=== PATIENT | female | born 1935 | race Caucasian/White ===

== ENCOUNTER 2017-02-20 06:36 | Inpatient (IN) | payer OTHER ==
[2017-01-08 10:39] VITALS: BMI 34.0
[2017-01-08 10:59] VITALS: BMI 34.0
--- NOTE | 2017-01-08 11:23 | PAT Medication Instructions ---
Service Date Jan 08, 2017. Current Home Medication List Albuterol Hfa (Ventolin Hfa), 2 PUFFS INH Q6H PRN for PRN Bupropion (Wellbutrin Sr), 150 MG PO BID Cholecalciferol (Vitamin D3), 1 TAB PO QAM Citalopram Hydrobromide (Celexa), 40 MG PO QAM Cyanocobalamin (Vitamin B12), 1,000 MCG PO QAM Diclofenac Sodium (Topical) (Voltaren 1% Top Gel), 1 DOSE TOP PRN Dicyclomine Hcl (Bentyl), 10 MG PO BID Insulin Detemir (Levemir), 100 UNITS INJ QPM Levocetirizine Dihydrochloride (Levocetirizine Dihydrochl), 1 TAB PO QAM Levothyroxine Sodium (Levothyroxine Sodium), 1 TAB PO QAM Metformin Hcl (Glucophage), 500 MG PO BID Multivitamin (Multivitamin), 1 TAB PO QAM Oxycodone/Acetaminophen 7.5MG/325MG (Percocet 7.5MG/325MG), 1 TAB PO Q4H PRN for Pain Pantoprazole (Protonix), 40 MG PO QAM Simvastatin (Zocor), 40 MG PO QPM Trazodone Hcl (Trazodone), 100 MG PO HS PRN for RN [Allergy Tab], 1 TAB PO PRN [Humalog] [Insulin Humalog], 16 UNITS INJ BID Medication Instructions For Your Scheduled Surgery - Hold the following medications 48 hours prior to surgery: Metformin Hcl (Glucophage), 500 MG PO BID - Hold the following medications 24 hours prior to surgery: Diclofenac Sodium (Topical) (Voltaren 1% Top Gel), 1 DOSE TOP PRN - Hold the following medications the morning of surgery: Cholecalciferol (Vitamin D3), 1 TAB PO QAM Cyanocobalamin (Vitamin B12), 1,000 MCG PO QAM Multivitamin (Multivitamin), 1 TAB PO QAM Levocetirizine Dihydrochloride (Levocetirizine Dihydrochl), 1 TAB PO QAM Dicyclomine Hcl (Bentyl), 10 MG PO BID [Allergy Tab], 1 TAB PO PRN [Insulin Humalog], 16 UNITS INJ BID - Take the following medications the morning of surgery with a sip of water: Albuterol Hfa (Ventolin Hfa), 2 PUFFS INH Q6H PRN for PRN (BRING WITH YOU DAY OF SURGERY) Bupropion (Wellbutrin Sr), 150 MG PO BID Citalopram Hydrobromide (Celexa), 40 MG PO QAM Levothyroxine Sodium (Levothyroxine Sodium), 1 TAB PO QAM Oxycodone/Acetaminophen 7.5MG/325MG (Percocet 7.5MG/325MG), 1 TAB PO Q4H PRN ( if needed up to 4 hours prior to surgery) Pantoprazole (Protonix), 40 MG PO QAM - Take the following medications as scheduled the night before surgery: Bupropion (Wellbutrin Sr), 150 MG PO BID Trazodone Hcl (Trazodone), 100 MG PO HS PRN Insulin Detemir (Levemir), 100 UNITS INJ QPM Simvastatin (Zocor), 40 MG PO QPM [Insulin Humalog], 16 UNITS INJ BID Dicyclomine Hcl (Bentyl), 10 MG PO BID Oxycodone/Acetaminophen 7.5MG/325MG (Percocet 7.5MG/325MG), 1 TAB PO Q4H PRN If you have any questions please call us at [phone] or [phone] or [phone]
[2017-01-08 12:20] LABS: BASO % 0.4 %; BASO ABS # 0.04 K/uL (0-0.2); COMPLETE YES; EOS % 2.3 %; HEMATOCRIT 40.8 % (37-47); IG% 0.3 %; LYMPH % 21.4 %; MEAN CELL VOLUME 94.7 fL (80-100); MEAN CORPUSCULAR HEMOGLOBIN 29.9 pg (25-34); MEAN CORPUSCULAR HGB CONC 31.6 g/dl (32-36); MEAN PLATELET VOLUME 10.3 fL (7.4-10.4); MONO % 8.1 %; NEUT % 67.5 %; PLATELET COUNT 213 K/uL (130-400); RED BLOOD COUNT 4.31 M/uL (4.2-5.4); WHITE BLOOD COUNT 9.83 K/uL (4.8-10.8)
[2017-01-08 12:24] LABS: URINE APPEARANCE CLOUDY (CLEAR); URINE BILIRUBIN NEG (NEG); URINE COLOR YELLOW; URINE EPITHELIAL CELL AUTO >30 /lpf (0-5); URINE NITRITE NEG (NEG); URINE PH 5.5 (4.5-7.5); URINE SPECIFIC GRAVITY 1.013 (1.000-1.030); UROBILINOGEN NEG (NEG)
--- NOTE | 2017-01-08 12:28 | DIAGNOSTIC IMAGING REPORT ---
CHEST PREADMISSION(PA/LAT) CLINICAL HISTORY: 81 years-old Female presenting with PAT. TECHNIQUE: PA and lateral views of the chest were obtained. COMPARISON: None. FINDINGS: Atherosclerosis of aortic arch. Cardiac silhouette normal in size. Prominent left nipple shadow projects over the lingula. Lungs and pleural spaces clear. Degenerative changes of the spine with slightly exaggerated thoracic kyphosis. Upper abdomen normal. IMPRESSION: 1. No acute cardiopulmonary disease. Electronically signed by: Dustin Cantu M.D. 01/08/2017 12:26 PM Dictated Date/Time: 01/08/2017 12:25 PM
[2017-01-08 12:32] LABS: MANUAL MICROSCOPIC REQUIRED? NO; REVIEW REQ? NO
[2017-01-08 12:36] LABS: BUN/CREATININE RATIO 16.4 (10-20); CALCIUM 8.8 mg/dl (8.5-10.1); CREATININE 0.89 mg/dl (0.60-1.20); POTASSIUM 3.9 mmol/L (3.5-5.1)
[2017-01-08 12:45] LABS: ESTIMATED AVERAGE GLUCOSE 169 mg/dl; HA1C FLAG Normal (Normal)
--- NOTE | 2017-01-16 07:15 | HISTORY & PHYSICAL EXAMINATION ---
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 She presents for right total knee arthroplasty. She has failed attempts at conservative management including physical therapy, anti-inflammatories, relative rest, activity modification and presents for right total knee arthroplasty. FAMILY HISTORY: Otherwise unremarkable and noncontributory. SOCIAL HISTORY: The patient denies history of smoking, alcohol use, recreational drug use. PAST SURGICAL HISTORY: Significant for breast reduction, tonsillectomy, hysterectomy. ALLERGIES: INCLUDE SEASONAL ALLERGIES. MEDICATIONS: Include insulin, metformin 500 mg p.o. daily, and a cholesterol medication. PAST MEDICAL HISTORY: Otherwise unremarkable. See history of present illness for pertinent positives. PHYSICAL EXAMINATION: GENERAL: Reveals a very pleasant 81-year-old white female, alert and oriented x3, in no acute distress. HEENT: Atraumatic, normocephalic. HEART: Regular at 78 beats per minute. No murmurs are noted. LUNGS: Clear without rales, rhonchi, or wheezes noted. ABDOMEN: Soft, nontender, nondistended. Bowel sounds are present in all 4 quadrants. RECTAL: No rectal examination was performed. MUSCULOSKELETAL: Consistent with that of severe end-stage DJD about the right knee. PLAN: Right total knee arthroplasty, postoperative pain management, DVT prophylaxis, antibiotics as necessary.
--- NOTE | 2017-02-19 10:04 | HISTORY & PHYSICAL EXAMINATION ---
DATE OF ADMISSION: 02/20/2017 HISTORY OF PRESENT ILLNESS: The patient presents as a very pleasant 81-year-old white female, being seen and evaluated with complaints of ongoing pain with severe endstage DJD and varus alignment of her right knee. She presents for right total knee arthroplasty. She has failed attempts at conservative management including physical therapy, anti-inflammatories, relative rest, activity modification. FAMILY HISTORY: Otherwise unremarkable and noncontributory. SOCIAL HISTORY: The patient denies history of smoking, alcohol use or recreational drug use. PAST SURGICAL HISTORY: Significant for breast reduction surgery, tonsillectomy, hysterectomy. ALLERGIES: INCLUDE SEASONAL ALLERGIES. MEDICATIONS: Include metformin 500 mg p.o. b.i.d., cholesterol medication, insulin. REVIEW OF SYSTEMS: Otherwise unremarkable. See history of present illness for pertinent positives. PHYSICAL EXAMINATION: GENERAL: This is a very pleasant 81-year-old white female, alert and oriented x3, no acute distress. HEENT: Otherwise atraumatic, normocephalic. HEART: Regular at 74 beats per minute. No murmurs are noted. LUNGS: Clear without rales, rhonchi or wheezes noted. ABDOMEN: Soft, nontender, nondistended. Bowel sounds are present in all 4 quadrants. RECTAL: No rectal examination was performed. MUSCULOSKELETAL: Consistent with that of severe end-stage DJD, valgus alignment, [id number] changes, subchondral sclerosis, osteophyte formation. The patient presents for total knee arthroplasty, postoperative pain management, DVT prophylaxis, antibiotics as noted above.
[2017-02-20] VITALS (8 sets, daily range): BP systolic 122–153; BP diastolic 66–79; PULSE 68–84; TEMP 36.4–37; O2SAT 90–97; Ht 152.4 cm; Wt 78.6 kg
[~2017-02-20] VITALS: Ht 152.4 cm; Wt 78.6 kg
[~2017-02-20 06:36] MED LIST: ACETAMINOPHEN 500 MG TAB PO SCH; ALLERGY TAB PO; BUPIVACAINE 0.25% 30 ML VIAL ONE; BUPIVACAINE 0.5 % 5 MG/1 ML PF 10ML VIAL ONE; BUPR-79 PO; CEFAZOLIN 1000MG/55 ML D5W 55 ML IV SCH; CHOL1000 PO; CITA40TA12 PO; CYAN100020 PO; CeleBREX 200 MG CAP PO SCH; DEXAMETHASONE 4 MG TAB PO SCH; DICL1GEL12 TOP; DICY10CA55 PO; FAMOTIDINE 20 MG TAB PO SCH; GABAPENTIN 300 MG CAP PO SCH; GLC/500 PO; INSULIN HUMALOG INJ; LACTATED RINGER'S 1000ML 1,000 ML IV SCH; LACTATED RINGER'S 1000ML 500 ML IV ONE; LACTATED RINGER'S 1000ML 500 ML IV SCH; LACTATED RINGER'S 1000ML IV SCH; LEVO-14 PO; LEVO75TA5 PO; LVMI INJ; METOCLOPRAMIDE HCL 10 MG TAB PO SCH; MULT-506 PO; OXYC7.5T65 PO; PANT40TA PO; ROPIVACAINE 5MG/ML 30 ML 150 MG, BUPIVACAINE/EPINEPHR 0.5% MPF 30 ML, KETOROLAC TROMETH... INFIL SCH; SIMV40TA2 PO; TRANEXAMIC ACID INJ 1,000 MG in SODIUM CHLORIDE 0.9% 100ML 100 ML IV SCH; TRAZ100T29 PO; VNTHFA/IN INH
--- NOTE | 2017-02-20 06:58 | History & Physical Bridge Note ---
H&P Re-Evaluation Bridge Note: I have examined the patient, reviewed the History & Physical and in the interval since the performance of the History & Physical I have noted the following changes of clinical significance: No changes noted
[2017-02-20] MEDS ORDERED: DEXTROSE 50% 50 ML SYR ONE (07:26)
[2017-02-20] MEDS ORDERED: LIDOCAINE HCL 2% 2 ML VIAL (20MG/ML) ONE (07:50)
[2017-02-20] MEDS ORDERED: PROPOFOL IV EMULSION 10 MG/ML 20 ML VIAL IV ONE (07:50)
[2017-02-20] MEDS ORDERED: MIDAZOLAM HCL 1 MG/ML 2ML VIAL ONE (07:51)
[2017-02-20] MEDS ORDERED: FENTANYL CITRATE INJ 50 MCG/1 ML 2 ML VIAL ONE (07:51)
[2017-02-20] MEDS ORDERED: ONDANSETRON INJ 2 MG/ML 2 ML VIAL ONE (07:56)
[2017-02-20 08:43] LABS: BUN/CREATININE RATIO 16.3 (10-20); CALCIUM 8.8 mg/dl (8.5-10.1); CREATININE 1.1 mg/dl (0.60-1.20); POTASSIUM 3.6 mmol/L (3.5-5.1)
[2017-02-20] MEDS ORDERED: BACITRACIN 50000 UNIT VIAL ONE (09:01)
[2017-02-20] MEDS ORDERED: POVIDONE-IODINE OP SOLN 30 ML BTL ONE (09:01)
[2017-02-20] MEDS ORDERED: ORTHO JOINT ANESTHETIC ONE (09:01)
[2017-02-20] MEDS: TRANEXAMIC ACID INJ 1,000 MG in SODIUM CHLORIDE 0.9% 100ML 100 ML IV SCH ×2 (09:08→12:33)
[2017-02-20] MEDS ORDERED: ONDANSETRON INJ 2 MG/ML 2 ML VIAL IV PRN ×2 (09:45→11:15)
[2017-02-20] MEDS ORDERED: ATROPINE SULFATE 0.1 MG/ML 5ML SYR IV PRN (09:45)
[2017-02-20] MEDS ORDERED: EpHEDrine SULFATE INJ 50 MG/ML AMP IV PRN (09:45)
[2017-02-20] MEDS ORDERED: HYDROmorphone INJ 2 MG/ML SYR/VIAL IV PRN (09:45)
[2017-02-20] MEDS ORDERED: PHENYLEPHRINE 100MCG/ML 5ML SYR IV PRN (09:45)
[2017-02-20] MEDS ORDERED: KETOROLAC TROMETHAMINE 30 MG/ML VIAL IV. PRN (09:45)
[2017-02-20] MEDS ORDERED: EpHEDrine SULFATE 50MG/5ML SYR ONE (10:16)
--- NOTE | 2017-02-20 10:27 | [facility] Operative Report ---
Operative Report Operative Date Feb 20, 2017. Pre-Operative Diagnosis Right Knee End-Stage Degenerative Joint Disease Post-Operative Diagnosis Right Knee End-Stage Degenerative Joint Disease Procedure(s) Performed Right Total Knee Arthroplasty utilizing [employer] journey 2 nonlocked total knee arthroplasty size 2 femur to tibia Poly-29 oval patella Surgeon Ernesto Internet Marketer Surgeon(s) Jey Hart PA-C Estimated Blood Loss 5CC Findings Patient presents with severe end-stage Tri-Chlor milligrams joint disease varus alignment subchondral cystic formation osteophyte formation Nourse wants to conservative therapy Specimens A: Right Knee Bone and Tissue Complication(s) None Disposition Recovery Room / PACU Indications Patient presents with severe end-stage Tri-Chlor milligrams Joint disease after failing attempts at conservative management of for total knee arthroplasty risk opticians of been discussed entirety. Description of Procedure After proper prepping and draping of the Right lower extremity anterior midline incision was made over the region of the extensor extensor mechanism after meticulous hemostasis was obtained and maintained in subcutaneous tissues a medial parapatellar incision was made The patella was subluxed lateralward the medial lateral gutter were cleaned from any hypertrophic synovitis and scar tissue of the distal femoral block was placed and the distal femoral osteotomy cut was made subsequently the chamfers anterior and posterior osteotomy cuts were made utilizing the 4-in-1 block the tibia was subsequently subluxed anteriorward medial and ateral meniscal remnants were excised in their entirety remnants of the anterior and posterior cruciate ligaments were excised in their entirety excellent exposure of the proximal tibia was obtained the tibial osteotomy guide was placed on the proximal tibial osteotomy cut was made once again the knee was irrigated with copious amounts of sterile saline solution the patella was subsequently everted lateralward thickened scar tissue around the patella was removed the patella was subsequently cut utilizing a freehand technique and was drilled prepared for final preparation and placement of patella socially flexion-extension gaps were checked and the equal and symmetric trials were placed to the appropriate femoral and tibial trials with poly-spacer being placed for equal flexion and extension gaps and full range of motion including extension to 0 and flexion to 140 the trial components after having been taken to recovery range of motion was subsequently removed meticulous hemostasis was obtained and maintained subsequently a knee block injection of joint cocktail including ropivacaine 0.5% 150 mg. Bupivacaine 0.5 % epinephrine 1-200,030 mL's toradol 30 mg dexamethasone 4 mg ketamine 10 mg clonidine 100 micrograms normal saline solution 30 mg was infiltrated into the soft tissues of the posterior knee medial lateral gutters and periosteal synovium special attention was paid to protect neurovascular structures at all times subsequently trial components having been removed the knee was irrigated with sterile saline solution. debris was removed the proximal tibia was subsequently prepared and was made ready for the placement of the tibial component tibial component was also cemented and tamped into position the femoral component was subsequently placed and cemented in the position the patellar component was subsequently cemented in position because hemostasis once again obtained and maintained wound having been thoroughly irrigated with debridement and debridement lavage was performed as well as a medial parapatellar incision closed with #1 Vicryl in interrupted fashion subcutaneous was closed with #2 Vicryl skin was closed with skin clips. PA-C was necessary for prepping and drapping as well as wound closure of deep fascia Sub cutaneous tissue and skin and was necessary for the case. A sterile compressive dressing was placed patient was taken to recovery in stable condition of report dictated by Ernesto I attest to the content of the Intraoperative Record and any orders documented therein. Any exceptions are noted below. I attest to the content of the Intraoperative Record and any orders documented therein. Any exceptions are noted below.
[2017-02-20] MEDS ORDERED: SOD PHOSPHATE/SOD BIPHOSPHATE ENEMA 132 ML BTL PR PRN (11:15)
[2017-02-20] MEDS ORDERED: [UNRECOGNIZED DRUG - REMARK] PO SCH (11:15)
[2017-02-20] MEDS ORDERED: BISACODYL 10 MG SUPP PR PRN (11:15)
[2017-02-20] MEDS ORDERED: ALUMINUM/MAGNESIUM/SIMETH (MAALOX MAX) 30 ML UDC PO PRN (11:15)
[2017-02-20] MEDS ORDERED: TRAZODONE HCL 100 MG TAB PO PRN (11:15)
[2017-02-20] MEDS ORDERED: MAGNESIUM HYDROXIDE SUSP 30 ML UDC PO PRN (11:15)
[2017-02-20] MEDS ORDERED: MoRPHine SULFATE 2 MG/ML CARP IV PRN (11:15)
[2017-02-20] MEDS ORDERED: ALBUTEROL HFA 8 GM INHALER INH PRN (11:15)
--- NOTE | 2017-02-20 11:53 | Anesthesiology Progress Note ---
Anesthesia Post Op Note Date & Time Feb 20, 2017 at 11:53 Vital Signs Pain Intensity: 0 Vital Signs Past 12 Hours Date Time Temp Pulse Resp B/P (MAP) Pulse Ox O2 Delivery O2 Flow Rate FiO2 02/20/17 11:50 68 16 129/59 97 Nasal Cannula 2 02/20/17 11:40 37.1 72 16 136/68 96 Nasal Cannula 2 02/20/17 11:30 72 16 137/59 97 Nasal Cannula 2 02/20/17 11:20 68 16 137/75 97 Nasal Cannula 2 02/20/17 11:10 71 16 135/69 100 Oxymask 10 02/20/17 11:02 36.4 66 16 136/66 100 Oxymask 10 02/20/17 07:40 36.4 68 20 153/66 95 Room Air Notes Mental Status: alert / awake / arousable, participated in evaluation Pt Amnestic to Procedure: Yes Nausea / Vomiting: adequately controlled Pain: adequately controlled Airway Patency, RR, SpO2: stable & adequate BP & HR: stable & adequate Hydration State: stable & adequate Anesthetic Complications: no major complications apparent
--- NOTE | 2017-02-20 12:00 | DIAGNOSTIC IMAGING REPORT ---
TWO VIEWS RIGHT KNEE CLINICAL HISTORY: Postoperative examination. FINDINGS: AP and crosstable lateral portable views of the right knee are obtained. A right knee arthroplasty is in near anatomic alignment. There has been undersurface remodeling of the patella. No acute fracture is seen. There are expected postoperative changes around the knee including skin clips, a surgical drain, soft tissue edema, and subcutaneous gas. IMPRESSION: Expected postoperative changes status post right knee arthroplasty. No acute fracture is seen. Electronically signed by: Arslan Spears M.D. 02/20/2017 11:58 AM Dictated Date/Time: 02/20/2017 11:58 AM
[2017-02-20] MEDS ORDERED: MoRPHine SULFATE 10 MG/ML CARP/VIAL IV PRN (13:00)
[2017-02-20] MEDS ORDERED: MoRPHine SULFATE 4 MG/ML 1 ML CARP\\VIAL IV PRN (13:00)
--- NOTE | 2017-02-20 13:43 | Medical Consult ---
Consultation Date of Consultation: Feb 20, 2017. Attending Physician: Ez Orozco D.O. Reason for Consultation: Medical management History of Present Illness Patient is an 81 y/o female, with PMHx of T2DM, dyslipidemia, hypothyroidism, GERD, and DJD s/p R TKA by Dr. Orozco on 02/20. Patient currently sitting in bed w/ family present. Ate lunch without any nausea or vomiting. R knee pain is starting to increase, but currently manageable. No flatus/BM postop. Unsure of discharge plans at this time. Patient denies any fever, chills, sweats, lightheadedness, dizziness, vision changes, CP, palpitations, edema, SOB, wheezing, cough, abdominal pain, nausea, vomiting, diarrhea, urinary symptoms, melena, numbness/tingling, weakness, anxiety/depression, active bleeding, or new skin discoloration/changes. Past Medical/Surgical History Past Medical History: T2DM Dyslipidemia GERD hypothyroidism DJD PAST SURGICAL HISTORY: R TKA breast reduction tonsillectomy hysterectomy Family History Noncontributory Social History Smoking Status: Never Smoker Alcohol Use: none Marital Status: Housing Status: lives with family Allergies Coded Allergies: NO KNOWN DRUG ALLERGIES (Unverified Allergy, Unknown, NONE, 02/20/17) POLLEN (Unverified Allergy, Unknown, SNEEEZING,CONGESTION, 02/20/17) Home Medications Reported Home Medications Medications Dose Route/Sig Max Daily Dose Days Date Category Dose Instructions Glucophage (Metformin Hcl) 500 Mg Tab 500 Mg PO BID 01/08/17 Reported [Allergy Tab] 1 Tab PO PRN 01/08/17 Reported Multivitamin (Multivitamins) Tab 1 Tab PO QAM 01/08/17 Reported Vitamin D3 (Cholecalciferol) 1,000 Unit Tab 1 Tab PO QAM 90 01/08/17 Reported Vitamin B12 (Cyanocobalamin) 1,000 Mcg Tab 1,000 Mcg PO QAM 01/08/17 Reported Trazodone (Trazodone HCl) 100 Mg Tab 100 Mg PO HS PRN 01/08/17 Reported Ventolin Hfa (Albuterol) 200 Puffs/41776 Mcg Aers 2 Puffs INH Q6H PRN 01/08/17 Reported Zocor (Simvastatin) 40 Mg Tab 40 Mg PO QPM 01/08/17 Reported Protonix (Pantoprazole Sodium) 40 Mg Tab 40 Mg PO QAM 01/08/17 Reported Celexa (Citalopram Hydrobromide) 40 Mg Tab 40 Mg PO QAM 01/08/17 Reported Levothyroxine Sodium 75 Mcg Tab 1 Tab PO QAM 90 01/08/17 Reported Levocetirizine Dihydrochl (Levocetirizine Dihydrochloride) 5 Mg Tab 1 Tab PO QAM 90 01/08/17 Reported Percocet 7.5MG/325MG (Oxycodone/Acetaminophen) Tab 1 Tab PO Q4H PRN 01/08/17 Reported PRN PAIN Bentyl (Dicyclomine Hcl) 10 Mg Cap 10 Mg PO BID 01/08/17 Reported Wellbutrin Sr (Bupropion HCl) 150 Mg Ertab 150 Mg PO BID 01/08/17 Reported Levemir (Insulin Detemir) 100 Units/Ml Inj 100 Units INJ QPM 01/08/17 Reported [Insulin Humalog] 16 Units INJ BID 01/08/17 Reported Current Inpatient Medications Current Inpatient Medications Medications (Trade) Dose Ordered Sig/Raghu Route Start Time Stop Time Status Last Admin Dose Admin Cefazolin Sodium 55 ml @ 100 mls/hr PREOP IV 02/20/17 06:00 02/20/17 18:00 02/20/17 09:27 100 MLS/HR Acetaminophen (Tylenol Tab) 1,000 mg PREOP PO 02/20/17 06:00 02/20/17 18:00 02/20/17 08:17 1,000 MG Celecoxib (CeleBREX CAP) 200 mg PREOP PO 02/20/17 06:00 02/20/17 18:00 02/20/17 08:16 200 MG Dexamethasone (Decadron Tab) 8 mg PREOP PO 02/20/17 06:00 02/20/17 18:00 02/20/17 08:16 8 MG Famotidine (Pepcid Tab) 20 mg PREOP PO 02/20/17 06:00 02/20/17 18:00 02/20/17 08:17 20 MG Gabapentin (Neurontin Cap) 300 mg PREOP PO 02/20/17 06:00 02/20/17 18:00 02/20/17 08:16 300 MG Metoclopramide HCl (Reglan Tab) 10 mg PREOP PO 02/20/17 06:00 02/20/17 18:00 02/20/17 08:17 10 MG Tranexamic Acid 1000 mg/Sodium Chloride 110 ml @ 660 mls/hr TODAY@06,0630 IV 02/20/17 06:00 02/20/17 18:00 02/20/17 09:08 660 MLS/HR Lactated Ringer's 1,000 ml @ 60 mls/hr [id number] IV 02/20/17 06:00 02/20/17 22:39 Lactated Ringer's 1,000 ml @ 15 mls/hr Q24H IV 02/20/17 06:00 02/21/17 05:59 Sodium Chloride 1,000 ml @ 100 mls/hr Q10H IV 02/20/17 12:45 02/21/17 12:44 Cefazolin Sodium 1000 mg/Dextrose 55 ml @ 100 mls/hr Q8H IV 02/20/17 18:00 02/21/17 02:32 Oxycodone HCl (Roxicodone Immediate Rel Tab) 1 TABLET FOR PAIN RATING... Q4H PRN PO 02/20/17 11:15 03/06/17 11:14 Acetaminophen (Tylenol Tab) 1,000 mg Q8 PO 02/20/17 22:00 03/22/17 21:59 Magnesium Hydroxide (Milk Of Magnesia Susp) 30 ml Q6H PRN PO 02/20/17 11:15 03/22/17 11:14 Bisacodyl (Dulcolax Supp) 10 mg DAILY PRN GA 02/20/17 11:15 03/22/17 11:14 Sodium Biphosphate/ Sodium Phosphate (Fleet Enema) 132 ml DAILY PRN GA 02/20/17 11:15 03/22/17 11:14 Senna (Senokot Tab) 17.2 mg HS PO 02/20/17 21:00 03/22/17 20:59 Docusate Sodium (coLACE CAP) 100 mg BID PO 02/20/17 21:00 03/22/17 20:59 Diphenhydramine HCl (Benadryl Cap) 25 mg Q8H PRN PO 02/20/17 11:15 03/22/17 11:14 Al Hydrox/Mg Hydrox/Simethicone (Maalox Max Susp) 15 ml Q4H PRN PO 02/20/17 11:15 03/22/17 11:14 Multivitamins (Multivitamin Tab) 1 tab QAM PO 02/21/17 09:00 03/23/17 08:59 Ondansetron HCl (Zofran Inj) 4 mg Q6H PRN IV 02/20/17 11:15 03/22/17 11:14 Pantoprazole Sodium (Protonix Tab) 40 mg QAM PO 02/21/17 09:00 03/23/17 08:59 Tramadol HCl (Ultram Tab) 1 tablet for pain rating... Q4H PRN PO 02/20/17 11:15 03/22/17 11:14 Aspirin (Ecotrin Tab) 81 mg BID PO 02/20/17 21:00 03/22/17 20:59 Albuterol (Ventolin Hfa Inhaler) 2 puffs Q6H PRN INH 02/20/17 11:15 03/22/17 11:14 Bupropion HCl (Wellbutrin-Sr Tab) 150 mg BID PO 02/20/17 21:00 03/22/17 20:59 Citalopram Hydrobromide (celeXA TAB) 40 mg QAM PO 02/21/17 09:00 03/23/17 08:59 Dicyclomine HCl (Bentyl Cap) 10 mg BID PO 02/20/17 21:00 03/22/17 20:59 Levothyroxine Sodium (Synthroid Tab) 75 mcg DAILYBB PO 02/21/17 06:00 03/23/17 05:59 Simvastatin (Zocor Tab) 40 mg QPM PO 02/20/17 21:00 03/22/17 20:59 Trazodone HCl (Desyrel Tab) 100 mg HS PRN PO 02/20/17 11:15 03/22/17 11:14 Cyanocobalamin (Vitamin B-12 Tab) 1,000 mcg QAM PO 02/21/17 09:00 03/23/17 08:59 Morphine Sulfate (MoRPHine SULFATE INJ) 2 mg Q4HWA PRN IV 02/20/17 11:15 03/06/17 11:14 Morphine Sulfate (MoRPHine SULFATE INJ) 4 mg Q4HWA PRN IV 02/20/17 13:00 03/06/17 12:59 Morphine Sulfate (MoRPHine SULFATE INJ) 6 mg Q4HWA PRN IV 02/20/17 13:00 03/06/17 12:59 Miscellaneous Information (Order Awaiting Action) 1 ea QS N/A 02/20/17 16:00 03/22/17 15:59 Physical Exam Date Time Temp Pulse Resp B/P (MAP) Pulse Ox O2 Delivery O2 Flow Rate FiO2 02/20/17 13:19 37.0 81 18 147/79 (101) 97 Nasal Cannula 3.0 02/20/17 12:42 36.5 71 18 130/74 (92) 96 Nasal Cannula 3.0 02/20/17 12:15 36.5 72 16 122/70 (87) 95 Nasal Cannula 2.0 02/20/17 12:15 Nasal Cannula 2.0 02/20/17 12:15 Nasal Cannula 2.0 02/20/17 12:00 68 16 128/61 97 Nasal Cannula 2 02/20/17 11:50 68 16 129/59 97 Nasal Cannula 2 02/20/17 11:40 37.1 72 16 136/68 96 Nasal Cannula 2 02/20/17 11:30 72 16 137/59 97 Nasal Cannula 2 02/20/17 11:20 68 16 137/75 97 Nasal Cannula 2 02/20/17 11:10 71 16 135/69 100 Oxymask 10 02/20/17 11:02 36.4 66 16 136/66 100 Oxymask 10 02/20/17 07:40 36.4 68 20 153/66 95 Room Air General Appearance: no apparent distress, + pertinent finding (O2 NC) Head: normocephalic, atraumatic Eyes: normal inspection, PERRL ENT: hearing grossly normal Neck: supple Respiratory/Chest: lungs clear, no respiratory distress, no accessory muscle use Cardiovascular: regular rate, rhythm Abdomen/GI: normal bowel sounds, non tender, soft Extremities/Musculoskelatal: no calf tenderness, no pedal edema, + pertinent finding (SIXTO wrap to RLE; SCDs on ) Neurologic/Psych: alert, normal mood/affect, oriented x 3 Skin: normal color, warm/dry, no rash Laboratory Results Last 24 Hours Test 02/20/17 07:13 02/20/17 07:39 02/20/17 07:57 02/20/17 08:50 Bedside Glucose 39 mg/dl 209 mg/dl 99 mg/dl Sodium Level 140 mmol/L Potassium Level 3.6 mmol/L Chloride Level 107 mmol/L Carbon Dioxide Level 27 mmol/L Anion Gap 5.0 mmol/L Blood Urea Nitrogen 18 mg/dl Creatinine 1.10 mg/dl Est Creatinine Clear Calc Drug Dose 35.9 ml/min Estimated GFR () 53.8 Estimated GFR (Non- 46.4 BUN/Creatinine Ratio 16.3 Random Glucose 142 mg/dl Calcium Level 8.8 mg/dl Test 02/20/17 10:03 02/20/17 11:07 Bedside Glucose 113 mg/dl 133 mg/dl Assessment & Plan Patient is an 81 y/o female, with PMHx of T2DM, dyslipidemia, hypothyroidism, GERD, and DJD s/p R TKA by Dr. Orozco on 02/20. s/p R TKA by Dr. Orozco on 02/20: - Pain management, IVF, PT/OT and DVT prophylaxis as per primary team - Bowel regimen ordered - Follow postop CBC and PRP - Encourage incentive spirometer T2DM- HgbA1C 7.5% on 01/08/17: - Hold Metformin 500 mg BID - Continue Levemir 42 U HS - BSG ACHS and sliding insulin scale Dyslipidemia: Continue Zocor 40 mg daily Hypothyroidism: Continue Synthroid 75 mcg daily Anxiety/depression: Continue Wellbutrin 150 BID, Celexa 40 mg daily, Trazodone 100 mg HS PRN GERD: Continue Protonix 40 mg daily DVT prophylaxis: As per surgical team- ASA 81 mg BID Dispo: As per primary team Thank you for this consultation. We will continue to follow. .Attending Addendum: I have physically seen this patient, have directed the physician assistants medical activities, and agree with the H&P as noted above with the following exceptions as noted. Assessment and Plan: Status post right total knee arthroplasty on 02/[address] Orozco-- Seen postoperatively is medically stable. Diabetes mellitus-- hold metformin Continue Levemir 42 units subcutaneous at bedtime. Place on Accu-Cheks before meals and at bedtime with NovoLog coverage per scale. Dyslipidemia-- Continue Zocor 40 mg daily. Hypothyroidism-- Continue Synthroid 75 g by mouth daily. Anxiety with depression-- Continue Wellbutrin 150 mg by mouth twice a day, Celexa 40 mg by mouth daily and trazodone 100 mg by mouth at bedtime when necessary. GERD-- Continue Protonix 40 mg daily.
[2017-02-20] MEDS: OXYCODONE HCL IR 5 MG TAB (IMMEDIATE RELEASE) PO PRN ×2 (14:14→20:43)
[2017-02-20] MEDS: SODIUM CHLORIDE 0.9% 1000ML 1,000 ML IV SCH ×2 (14:15→22:14)
[2017-02-20] MEDS ORDERED: DEXTROSE 50% 50 ML SYR IV PRN (14:15)
[2017-02-20] MEDS ORDERED: GLUCOSE 10 TABS/TUBE PO PRN (14:15)
[2017-02-20] MEDS ORDERED: GLUCOSE 40% GEL 15 GM TUBE PO PRN (14:15)
[2017-02-20] MEDS ORDERED: GLUCAGON FOR INJ 1 MG VIAL SQ PRN (14:15)
[2017-02-20] MEDS: CEFAZOLIN IV 1,000 MG in DEXTROSE 5% 50ML 50 ML IV SCH (17:35)
[2017-02-20] MEDS ORDERED: NURSING VERBAL MED ORDER ONE (18:15)
[2017-02-20] MEDS: INSULIN ASPART 100 UNITS/ML 3 ML PEN SC SCH ×2 (18:38→21:04)
[2017-02-20] MEDS: ASPIRIN 81 MG ECTAB PO SCH (20:45)
[2017-02-20] MEDS: DICYCLOMINE HCL 10 MG CAP PO SCH (20:46)
[2017-02-20] MEDS: DOCUSATE SODIUM 100 MG CAP PO SCH (20:46)
[2017-02-20] MEDS: INSULIN DETEMIR FLEXPEN/FLEX TOUCH 100 UNITS/ML 3ML SC SCH (20:47)
[2017-02-20] MEDS: BuPROPion SR 150 MG TABCR PO SCH (20:51)
[2017-02-20] MEDS: SIMVASTATIN 40 MG TAB PO SCH (20:51)
[2017-02-20] MEDS: SENNA 8.6 MG TAB PO SCH (20:51)
[2017-02-20] MEDS ORDERED: INSULIN DETEMIR FLEXPEN/FLEX TOUCH 100 UNITS/ML 3ML SC SCH (21:00)
[2017-02-20] MEDS: ACETAMINOPHEN 500 MG TAB PO SCH (22:14)
[2017-02-21] VITALS (7 sets, daily range): BP systolic 120–148; BP diastolic 66–83; PULSE 62–78; TEMP 36.5–36.8; O2SAT 91–96
[2017-02-21] MEDS: TRAMADOL HCL 50 MG TAB PO PRN ×2 (00:23→07:41)
[2017-02-21] MEDS: CEFAZOLIN IV 1,000 MG in DEXTROSE 5% 50ML 50 ML IV SCH (02:36)
[2017-02-21] MEDS ORDERED: NURSING VERBAL MED ORDER ONE (04:15)
[2017-02-21] MEDS: INSULIN ASPART 100 UNITS/ML 3 ML PEN SC SCH ×5 (04:21→21:33)
[2017-02-21] MEDS: OXYCODONE HCL IR 5 MG TAB (IMMEDIATE RELEASE) PO PRN ×4 (04:28→21:30)
[2017-02-21] MEDS: LEVOTHYROXINE 75 MCG TAB PO SCH (05:31)
[2017-02-21] MEDS: ACETAMINOPHEN 500 MG TAB PO SCH ×3 (05:31→21:31)
[2017-02-21 06:03] LABS: HEMATOCRIT 30.5 % (37-47); MEAN CELL VOLUME 92.7 fL (80-100); MEAN CORPUSCULAR HEMOGLOBIN 30.4 pg (25-34); MEAN CORPUSCULAR HGB CONC 32.8 g/dl (32-36); MEAN PLATELET VOLUME 9.9 fL (7.4-10.4); PLATELET COUNT 162 K/uL (130-400); RED BLOOD COUNT 3.29 M/uL (4.2-5.4); WHITE BLOOD COUNT 13.12 K/uL (4.8-10.8)
[2017-02-21 06:21] LABS: INR 1.1 (0.9-1.1); PROTHROMBIN TIME (PATIENT) 11.5 SECONDS (9.0-12.0)
[2017-02-21 06:50] LABS: BUN/CREATININE RATIO 18.8 (10-20); CALCIUM 8.3 mg/dl (8.5-10.1); CREATININE 1.1 mg/dl (0.60-1.20); POTASSIUM 4.2 mmol/L (3.5-5.1)
--- NOTE | 2017-02-21 07:44 | Orthopedic Progress Note ---
Orthopedic Progress Note Date of Service Feb 21, 2017. Subjective Post OP Day: 1 (right TKA) Reports: feeling well, nausea / vomiting, pain controlled w PO medications, Denies: complaints, chest pain, SOB, light headedness, calf pain Objective calves soft nontender, N/V intact, capillary refill less than 2 sec., dressing C /D/I, A&O x3, toes mobile, hemovac drainage (100cc/8 hours) Date Time Temp Pulse Resp B/P (MAP) Pulse Ox O2 Delivery O2 Flow Rate FiO2 02/21/17 07:23 36.7 68 19 126/72 (90) 91 Room Air 02/21/17 03:36 36.7 74 17 124/72 (89) 93 Room Air 02/21/17 00:10 Room Air 02/20/17 23:11 36.7 71 17 134/67 (89) 90 Room Air 02/20/17 19:30 36.4 74 16 125/78 (94) 94 Room Air 02/20/17 16:17 36.6 84 18 136/75 (95) 96 2.0 02/20/17 14:28 36.5 79 17 148/78 (101) 97 Nasal Cannula 2.0 02/20/17 13:19 37.0 81 18 147/79 (101) 97 Nasal Cannula 3.0 02/20/17 12:42 36.5 71 18 130/74 (92) 96 Nasal Cannula 3.0 02/20/17 12:15 36.5 72 16 122/70 (87) 95 Nasal Cannula 2.0 02/20/17 12:15 Nasal Cannula 2.0 02/20/17 12:15 Nasal Cannula 2.0 02/20/17 12:00 68 16 128/61 97 Nasal Cannula 2 02/20/17 11:50 68 16 129/59 97 Nasal Cannula 2 02/20/17 11:40 37.1 72 16 136/68 96 Nasal Cannula 2 02/20/17 11:30 72 16 137/59 97 Nasal Cannula 2 02/20/17 11:20 68 16 137/75 97 Nasal Cannula 2 02/20/17 11:10 71 16 135/69 100 Oxymask 10 02/20/17 11:02 36.4 66 16 136/66 100 Oxymask 10 Laboratory Results 24 Hours: Test 02/21/17 05:52 Hematocrit 30.5 % Hemoglobin 10.0 g/dL Prothromb Time International Ratio 1.1 Prothrombin Time 11.5 SECONDS Assessment & Plan Assessment: POD #1 s/p Right TKA -pt/ot -dvt proph with na/scd/asa -plan for d/c home with HHPT when stable -pain control with Tramadol, Tylenol, Oxy Post-op Nausea- doesn't feel like Zofran is helping much, will switch to Phenergan T2DM- on Levemir, hold Metformin, SSI Dyslipidemia: Continue Zocor 40 mg daily Hypothyroidism: Continue Synthroid 75 mcg daily Anxiety/depression: Continue Wellbutrin 150 BID, Celexa 40 mg daily, Trazodone 100 mg HS PRN GERD: Continue Protonix 40 mg daily Discharge Planning Discharge Planning: home with home health DVT Prophylaxis: TEDs, SCDs, ASA Therapy: Physical Therapy
[2017-02-21] MEDS ORDERED: PROMETHAZINE HCL INJ 25 MG in SODIUM CHLORIDE 0.9% 50ML 50 ML IV PRN (07:45)
--- NOTE | 2017-02-21 07:49 | Discharge Instructions ---
Discharge Instructions Date of Service Feb 21, 2017. Admission Reason for Admission: Right Knee Osteoarthritis Discharge Discharge Diagnosis / Problem: Right Total Knee Replacement Discharge Goals Goal(s): Decrease discomfort, Improve function, Increase independence Activity Recommendations Activity Limitations: as noted below Weightbearing Status: Right weightbearing (as tolerated) Instructions / Follow-Up Instructions / Follow-Up ACTIVITY RECOMMENDATIONS: SELF CARE INSTRUCTIONS AFTER TOTAL KNEE REPLACEMENT A. You may need to continue a physical therapy program after discharge from the hospital. There are several options available to you. Your doctor will assist you in selecting the best one for you. 1. An out-patient facility 2 to 3 times a week for therapy or home therapy. 2. Continue working on all exercises taught to you in the hospital. Your goals should be to increase bending of your knee to 90 degrees and beyond and to fully straighten your knee. B. You may progress at your own pace from walking with a walker or crutches to a cane; then to no assistive devices. C. Make walking a part of your daily routine. Be up as much as comfortable with rest periods throughout the day. Rest with leg elevation is very important. Use the ice wrap frequently for the first 3-4 weeks. D. There are no restrictions on activities. You may ride in a car, shop, participate in cloth edge singer and all social activities. E. Wear the long elastic stockings (MALIA hose) 20 hours a day for 2 weeks after surgery. They can be removed several times a day for laundering and for a bath. F. You may shower, no tub baths until cleared by your doctor. SPECIAL CARE INSTRUCTIONS: VERY IMPORTANT TO READ AND REVIEW A. There are a few signs you need to watch for after you are home. Call [facility] if you notice any of the followin. Increased severe knee pain. Some pain is expected especially when you exercise. 2. Increased swelling in your leg or knee; pain or swelling of the calf muscle in either lower leg. 3. Any fluid drainage from the incision. 4. Shortness of breath or chest pain. B. Please call [facility] at if you have any concerns or questions about your operation or recovery. The doctor or his nurse will return your call promptly. C. You must take antibiotics before dental work, bladder, bowel or other surgery. Your doctor will provide you with a permanent care to carry describing this precaution. IMPORTANT: * REMEMBER TO TAKE ASPIRIN, 81 MG, TWICE DAILY FOR 4 WEEKS UNLESS OTHERWISE DIRECTED. THIS IS YOUR BLOOD THINNER. * HIGH RISK PATIENTS MAY BE PRESCRIBED A STRONGER BLOOD THINNER. THIS WILL BE PROVIDED AT DISCHARGE. * CALL IF INCREASED PAIN, REDNESS, DRAINAGE OR FEVER GREATER THAT 101. * WEAR MALIA HOSE 20 HOURS PER DAY FOR 2 WEEKS. * YOU MAY HAVE A LARGE BAND-AID LIKE DRESSING (SILVERON). THIS WILL REMAIN ON YOUR INCISION FOR 7 DAYS, THEN CAN BE REMOVED. IF INCISION IS LEAKING THROUGH DRESSING, CALL THE OFFICE . FOLLOW UP VISIT: If appointment is not already scheduled: Please call [facility] to make a follow-up appointment for 2 weeks after your surgery at . Additional instructions from Dr. Yuriy Sanchez (medical team) - 1. Your abdominal x-rays showed severe constipation. Recommend you take the following to prevent and treat the constipation - * miralax 1 to 2 doses daily (this can be purchased [id number]) * sennakot 2 tablets every morning Know that the pain medications for your knee (oxycodone) will make your constipation much worse. You will need to stay on the constipation medications for quite some time if not indefinitely. 2. You are mildly anemic as a result of your recent surgery. Please take over- the-counter iron tablets twice daily for about 2 months. Ask your pharmacist to point you in the direction of ferrous sulfate 325mg tablets. Know that the iron tends to cause constipation as well and cause the stools to look dark. 3. Please see your family doctor in [place] within 1 week. Yuriy Sanchez MD . Current Hospital Diet Patient's current hospital diet: Diabetes Type 2 Diet Discharge Diet Recommended Diet: Diabetes Type 2 Diet Procedures Procedures Performed: Right Total Knee Arthroplasty utilizing [employer] journey 2 nonlocked total knee arthroplasty size 2 femur to tibia Poly-29 oval patella Pending Studies Studies pending at discharge: no Laboratory Results Hemoglobin A1c Test 01/08/17 11:35 Range/Units Estimated Average Glucose 169 mg/dl Hemoglobin A1c 7.5 H 4.5-5.6 % Medical Emergencies . Who to Call and When: Medical Emergencies: If at any time you feel your situation is an emergency, please call 911 immediately. . Non-Emergent Contact Non-Emergency issues call your: Primary Care Provider, Surgeon . "Provider Documentation" section prepared by Jey Hart. . VTE Core Measure Inpt VTE Proph given/why not?: Other Anticoagulation (ASA 81mg po bid x 1 month ), T.E.D. Stockings, SCD's [place] Drug Monitoring Program Search Results: patient reviewed within database, no issues identified
[2017-02-21] MEDS: CITALOPRAM 40 MG TAB PO SCH (08:33)
[2017-02-21] MEDS: MULTIVITAMIN TAB PO SCH (08:33)
[2017-02-21] MEDS: CYANOCOBALAMIN 500 MCG TAB (VIT B-12) PO SCH (08:34)
[2017-02-21] MEDS: ASPIRIN 81 MG ECTAB PO SCH ×2 (08:34→21:31)
[2017-02-21] MEDS: PANTOprazole SOD 40 MG TAB PO SCH (08:34)
[2017-02-21] MEDS: DICYCLOMINE HCL 10 MG CAP PO SCH ×2 (08:34→21:31)
[2017-02-21] MEDS: DOCUSATE SODIUM 100 MG CAP PO SCH ×2 (08:35→21:32)
[2017-02-21] MEDS: SODIUM CHLORIDE 0.9% 1000ML 1,000 ML IV SCH (08:35)
[2017-02-21] MEDS: BuPROPion SR 150 MG TABCR PO SCH ×2 (08:35→21:31)
[2017-02-21] MEDS ORDERED: INSULIN DETEMIR FLEXPEN/FLEX TOUCH 100 UNITS/ML 3ML SC SCH (09:00)
[2017-02-21] MEDS ORDERED: NALOXONE HCL 0.4 MG/1 ML VIAL/CARP IV STA (09:37)
[2017-02-21] MEDS ORDERED: KETOROLAC TROMETHAMINE 15 MG/ML VIAL ONE (10:04)
[2017-02-21] MEDS ORDERED: KETOROLAC TROMETHAMINE 15 MG/ML VIAL IV ONE (10:15)
--- NOTE | 2017-02-21 10:29 | Hospitalist Progress Note ---
Hospitalist Progress Note Date of Service Feb 21, 2017. (Dionne Carrera ., GIANFRANCO) Subjective Pt evaluation today including: conversation w/ patient, physical exam, chart review, lab review, review of studies, review of inpatient medication list Voiding: no voiding problems I was called to come and see Ms. Zacarias by nursing due to change in mental status and pinpoint pupils. Patient was awake and conversant but confused and per nursing she has up until now been alert and oriented. Her main complaint is the pain in her right knee. Respiratory: + cough Musculoskeletal: + joint pain (Dionne Carrera ., GIANFRANCO) Objective Vital Signs Date Time Temp Pulse Resp B/P (MAP) Pulse Ox O2 Delivery O2 Flow Rate FiO2 02/21/17 09:29 72 130/77 (94) 95 Room Air 02/21/17 07:35 Room Air 02/21/17 07:23 36.7 68 19 126/72 (90) 91 Room Air 02/21/17 03:36 36.7 74 17 124/72 (89) 93 Room Air 02/21/17 00:10 Room Air 02/20/17 23:11 36.7 71 17 134/67 (89) 90 Room Air 02/20/17 19:30 36.4 74 16 125/78 (94) 94 Room Air 02/20/17 16:17 36.6 84 18 136/75 (95) 96 2.0 02/20/17 14:28 36.5 79 17 148/78 (101) 97 Nasal Cannula 2.0 02/20/17 13:19 37.0 81 18 147/79 (101) 97 Nasal Cannula 3.0 02/20/17 12:42 36.5 71 18 130/74 (92) 96 Nasal Cannula 3.0 02/20/17 12:15 36.5 72 16 122/70 (87) 95 Nasal Cannula 2.0 02/20/17 12:15 Nasal Cannula 2.0 02/20/17 12:15 Nasal Cannula 2.0 02/20/17 12:00 68 16 128/61 97 Nasal Cannula 2 02/20/17 11:50 68 16 129/59 97 Nasal Cannula 2 02/20/17 11:40 37.1 72 16 136/68 96 Nasal Cannula 2 02/20/17 11:30 72 16 137/59 97 Nasal Cannula 2 02/20/17 11:20 68 16 137/75 97 Nasal Cannula 2 02/20/17 11:10 71 16 135/69 100 Oxymask 10 02/20/17 11:02 36.4 66 16 136/66 100 Oxymask 10 (Dionne Carrera CRNP) Physical Exam Notes: General: no distress Eyes: pinpoint pupils, PERLL Respiratory: chest non tender, clear to auscultation, normal breath sounds, no respiratory distress, no accessory muscle use Cardiac: regular rate and rhythm, no rub or gallop, no murmur, no edema, no jvd GI/: active bowel sounds, no abd pain or tenderness, soft, non distended Extremities: normal range of motion, normal strength, non tender, Neuro/Psych: alert and oriented x 3 but confused - attempting to answer the remote, talking to no one on her cellphone, losing her train of thought while talking and then starting to speak nonsensically. She reorients if you ask her to clarify what she just said. Otherwise neuro exam is normal. Skin: normal color, dry (Dionne Carrera, GIANFRANCO) Laboratory Results Last 24 Hours Test 02/20/17 11:07 02/20/17 16:54 02/20/17 20:46 02/21/17 03:30 Bedside Glucose 133 mg/dl 312 mg/dl 296 mg/dl 306 mg/dl Test 02/21/17 05:52 02/21/17 08:18 White Blood Count 13.12 K/uL Red Blood Count 3.29 M/uL Hemoglobin 10.0 g/dL Hematocrit 30.5 % Mean Corpuscular Volume 92.7 fL Mean Corpuscular Hemoglobin 30.4 pg Mean Corpuscular Hemoglobin Concent 32.8 g/dl RDW Standard Deviation 43.6 fL RDW Coefficient of Variation 12.9 % Platelet Count 162 K/uL Mean Platelet Volume 9.9 fL Prothrombin Time 11.5 SECONDS Prothromb Time International Ratio 1.1 Sodium Level 138 mmol/L Potassium Level 4.2 mmol/L Chloride Level 108 mmol/L Carbon Dioxide Level 21 mmol/L Anion Gap 9.0 mmol/L Blood Urea Nitrogen 21 mg/dl Creatinine 1.10 mg/dl Est Creatinine Clear Calc Drug Dose 35.9 ml/min Estimated GFR () 53.8 Estimated GFR (Non- 46.4 BUN/Creatinine Ratio 18.8 Random Glucose 237 mg/dl Calcium Level 8.3 mg/dl Bedside Glucose 200 mg/dl (Dionne Carrera CRNP) Assessment and Plan Patient is an 81 y/o female, with PMHx of T2DM, dyslipidemia, hypothyroidism, GERD, and DJD s/p R TKA by Dr. Orozco on 02/20. s/p R TKA by Dr. Orozco on 02/20: - Pain management, IVF, PT/OT and DVT prophylaxis as per primary team - Bowel regimen ordered - Follow postop CBC and PRP - Encourage incentive spirometer Confusion - Narcan - patient in extreme pain after administration so given ketorlac 15 mg. She continues to be confused but she is completely alert and pupils are normal size instead of pinpoint. She has also stopped slurring her speech. - U/A - leuk esterase and wbcs - culture and start Rocephin 1g daily - reduced toradol dosing from 100 q4 to 50 q6, patient given 5 of oxycodone which is the dose she has been taking at home. T2DM- HgbA1C 7.5% on 01/08/17: - Hold Metformin 500 mg BID - Continue Levemir 42 U HS - BSG ACHS and sliding insulin scale Dyslipidemia: Continue Zocor 40 mg daily Hypothyroidism: Continue Synthroid 75 mcg daily Anxiety/depression: Continue Wellbutrin 150 BID, Celexa 40 mg daily, Trazodone 100 mg HS PRN GERD: Continue Protonix 40 mg daily DVT prophylaxis: As per surgical team- ASA 81 mg BID Dispo: As per primary team Thank you for this consultation. We will continue to follow. (Dionne Carrera CRNP) Attending Attestation: Pt seen/examined, chart reviewed, care plan d/w GIANFRANCO Carrera. I agree w/ the smith components of her documentation. Apparently following narcan administration this am she was more awake/alert and pupils returned to normal size. I saw the patient in the afternoon and she was fully awake, alert, and oriented. She recalled the events of the am. Denied any complaints except right knee pain. VSS no fever gen - nad pupils now about 3mm in size b/l neck - no JVD heart - RRR lungs - CTA b/l abd - soft ext - right knee wrapped in large dressing; pulses 2+ b/l A/P: 1. encephalopathy - possibly toxic from narcotics; resolved. ?UTI leading to metabolic encephalopathy - await culture, abx started. 2. ?UTI - rocephin started, follow cx. 3. T2DM - uncontrolled. Add AM levemir to PM levemir. 4. mild acute blood loss anemia - follow; Fe supplementation. 5. CKD stage 3 - BMP in am for stability. Yuriy Sanchez MD (Yuriy Sanchez MD)
[2017-02-21 10:39] LABS: URINE APPEARANCE CLOUDY (CLEAR); URINE BILIRUBIN NEG (NEG); URINE COLOR YELLOW; URINE EPITHELIAL CELL AUTO >30 /lpf (0-5); URINE NITRITE NEG (NEG); URINE SPECIFIC GRAVITY 1.013 (1.000-1.030); UROBILINOGEN NEG (NEG); ZZUR CULT IF INDIC CLEAN CATCH YES
[2017-02-21 10:40] LABS: MANUAL MICROSCOPIC REQUIRED? NO; REVIEW REQ? NO
[2017-02-21] MEDS ORDERED: TRAMADOL HCL 50 MG TAB PO PRN (11:15)
--- NOTE | 2017-02-21 13:26 | Anesthesiology Progress Note ---
Anesthesia Post Op Note Date & Time Feb 21, 2017 at 13:25 Vital Signs Vital Signs Past 12 Hours Date Time Temp Pulse Resp B/P (MAP) Pulse Ox O2 Delivery O2 Flow Rate FiO2 02/21/17 12:04 36.5 78 15 143/77 (99) 94 Room Air 02/21/17 09:29 72 130/77 (94) 95 Room Air 02/21/17 07:35 Room Air 02/21/17 07:23 36.7 68 19 126/72 (90) 91 Room Air 02/21/17 03:36 36.7 74 17 124/72 (89) 93 Room Air Notes Mental Status: alert / awake / arousable, participated in evaluation Pt Amnestic to Procedure: Yes Nausea / Vomiting: adequately controlled Pain: adequately controlled Airway Patency, RR, SpO2: stable & adequate BP & HR: stable & adequate Hydration State: stable & adequate Anesthetic Complications: no major complications apparent
[2017-02-21] MEDS: CEFTRIAXONE SOD INJ 1 GM in DEXTROSE 5% ADD-VANTAGE 50ML 50 ML IV SCH (13:36)
[2017-02-21] MEDS ORDERED: NURSING VERBAL MED ORDER PRN (16:45)
[2017-02-21] MEDS: KETOROLAC TROMETHAMINE 15 MG/ML VIAL IV. PRN (19:14)
[2017-02-21] MEDS: SIMVASTATIN 40 MG TAB PO SCH (21:32)
[2017-02-21] MEDS: SENNA 8.6 MG TAB PO SCH (21:32)
[2017-02-21] MEDS: INSULIN DETEMIR FLEXPEN/FLEX TOUCH 100 UNITS/ML 3ML SC SCH (21:36)
[2017-02-22] VITALS (8 sets, daily range): BP systolic 120–170; BP diastolic 60–83; PULSE 67–87; TEMP 36.5–37.1; O2SAT 92–99
[2017-02-22] MEDS: OXYCODONE HCL IR 5 MG TAB (IMMEDIATE RELEASE) PO PRN ×4 (03:25→18:04)
[2017-02-22] MEDS: ACETAMINOPHEN 500 MG TAB PO SCH ×3 (05:31→21:04)
[2017-02-22] MEDS: LEVOTHYROXINE 75 MCG TAB PO SCH (05:31)
[2017-02-22 06:50] LABS: BUN/CREATININE RATIO 19.9 (10-20); CALCIUM 8.3 mg/dl (8.5-10.1); CREATININE 0.96 mg/dl (0.60-1.20)
--- NOTE | 2017-02-22 07:13 | Orthopedic Progress Note ---
Orthopedic Progress Note Date of Service Feb 22, 2017. Subjective Post OP Day: 2 Reports: feeling well, pain controlled w PO medications, Denies: complaints, chest pain, SOB, nausea / vomiting, light headedness, calf pain Additional Notes: states she is feeling fine this am, pain a little worse than yesterday but currently tolerable. Objective calves soft nontender, N/V intact, capillary refill less than 2 sec., dressing C /D/I, A&O x3, toes mobile Date Time Temp Pulse Resp B/P (MAP) Pulse Ox O2 Delivery O2 Flow Rate FiO2 02/21/17 23:15 36.6 74 16 129/66 (87) 94 Room Air 02/21/17 20:00 Room Air 02/21/17 15:00 36.7 71 16 148/83 (104) 94 Room Air 02/21/17 12:04 36.5 78 15 143/77 (99) 94 Room Air 02/21/17 09:29 72 130/77 (94) 95 Room Air 02/21/17 07:35 Room Air 02/21/17 07:23 36.7 68 19 126/72 (90) 91 Room Air Assessment & Plan Assessment: POD #2 s/p Right TKA -pt/ot -dvt proph with na/scd/asa -plan for d/c home with HHPT when stable -received Narcan yesterday due to confusion/slurred speech, has resolved since. currently on her home dose of Oxy and tolerating well Post-op Nausea- currently improved T2DM- on Levemir, hold Metformin, SSI Dyslipidemia: Continue Zocor 40 mg daily Hypothyroidism: Continue Synthroid 75 mcg daily Anxiety/depression: Continue Wellbutrin 150 BID, Celexa 40 mg daily, Trazodone 100 mg HS PRN GERD: Continue Protonix 40 mg daily Discharge Planning Discharge Planning: home with home health DVT Prophylaxis: TEDs, SCDs, ASA Therapy: Physical Therapy
[2017-02-22] MEDS ORDERED: CLC100 PO (07:15)
[2017-02-22] MEDS ORDERED: RXC5 PO (07:15)
[2017-02-22] MEDS ORDERED: ASPEC81 PO (07:15)
[2017-02-22] MEDS ORDERED: ACET-24 PO (07:15)
[2017-02-22] MEDS: ASPIRIN 81 MG ECTAB PO SCH ×2 (09:26→21:03)
[2017-02-22] MEDS: DOCUSATE SODIUM 100 MG CAP PO SCH ×2 (09:26→21:04)
[2017-02-22] MEDS: CITALOPRAM 40 MG TAB PO SCH (09:27)
[2017-02-22] MEDS: CYANOCOBALAMIN 500 MCG TAB (VIT B-12) PO SCH (09:27)
[2017-02-22] MEDS: DICYCLOMINE HCL 10 MG CAP PO SCH ×2 (09:27→21:03)
[2017-02-22] MEDS: MULTIVITAMIN TAB PO SCH (09:27)
[2017-02-22] MEDS: BuPROPion SR 150 MG TABCR PO SCH ×2 (09:27→21:03)
[2017-02-22] MEDS: PANTOprazole SOD 40 MG TAB PO SCH (09:27)
[2017-02-22] MEDS: INSULIN ASPART 100 UNITS/ML 3 ML PEN SC SCH ×4 (09:43→21:02)
[2017-02-22] MEDS: KETOROLAC TROMETHAMINE 15 MG/ML VIAL IV. PRN ×2 (09:44→16:06)
--- NOTE | 2017-02-22 10:20 | Hospitalist Progress Note ---
Hospitalist Progress Note Date of Service Feb 22, 2017. (Dionne Carrera CRNP) Subjective Pt evaluation today including: conversation w/ patient, physical exam, chart review, lab review, review of inpatient medication list Voiding: no voiding problems Ms. Zacarias is back to her baseline mentation. She continues to have pain in her right knee. She also became dizzy while working with physical therapy and her SBP dropped into the 60s. Constitutional: No fever, No chills Respiratory: + shortness of breath Cardiovascular: No chest pain Abdomen: + constipation, No pain, No nausea, No vomiting, No diarrhea Musculoskeletal: + joint pain Female : No dysuria All Other Systems: Reviewed and Negative (Dionne Carrera CRNP) Objective Vital Signs Date Time Temp Pulse Resp B/P (MAP) Pulse Ox O2 Delivery O2 Flow Rate FiO2 02/22/17 07:15 36.5 69 17 147/75 (99) 93 Room Air 02/21/17 23:15 36.6 74 16 129/66 (87) 94 Room Air 02/21/17 20:00 Room Air 02/21/17 15:00 36.7 71 16 148/83 (104) 94 Room Air 02/21/17 12:04 36.5 78 15 143/77 (99) 94 Room Air (Dionne Carrera CRNP) Physical Exam Notes: General: no distress Eyes: normal inspection, PERLL Respiratory: chest non tender, clear to auscultation, normal breath sounds, no respiratory distress, no accessory muscle use Cardiac: regular rate and rhythm, no rub or gallop, no murmur, no edema, no jvd GI/: active bowel sounds, no abd pain or tenderness, soft, non distended Extremities: normal range of motion, normal strength, non tender Neuro/Psych: alert and oriented x 3, normal mood and affect Skin: normal color, dry (Dionne Carrera CRNP) Laboratory Results Last 24 Hours Test 02/21/17 10:25 02/21/17 12:15 02/21/17 16:58 02/21/17 20:03 Urine Color YELLOW Urine Appearance CLOUDY Urine pH 6.0 Urine Specific [place] 1.013 Urine Protein NEG Urine Glucose (UA) TRACE Urine Ketones NEG Urine Occult Blood NEG Urine Nitrite NEG Urine Bilirubin NEG Urine Urobilinogen NEG Urine Leukocyte Esterase LARGE Urine WBC (Auto) 10-30 /hpf Urine RBC (Auto) 0-4 /hpf Urine Hyaline Casts (Auto) 1-5 /lpf Urine Epithelial Cells (Auto) >30 /lpf Urine Bacteria (Auto) NEG Bedside Glucose 188 mg/dl 109 mg/dl 147 mg/dl Test 02/22/17 06:03 02/22/17 08:15 Sodium Level 142 mmol/L Potassium Level 4.0 mmol/L Chloride Level 111 mmol/L Carbon Dioxide Level 25 mmol/L Anion Gap 6.0 mmol/L Blood Urea Nitrogen 19 mg/dl Creatinine 0.96 mg/dl Est Creatinine Clear Calc Drug Dose 41.2 ml/min Estimated GFR () 63.4 Estimated GFR (Non- 54.7 BUN/Creatinine Ratio 19.9 Random Glucose 79 mg/dl Calcium Level 8.3 mg/dl Bedside Glucose 81 mg/dl (Dionne Carrera ., GIANFRANCO) Assessment and Plan Patient is an 81 y/o female, with PMHx of T2DM, dyslipidemia, hypothyroidism, GERD, and DJD s/p R TKA by Dr. Orozco on 02/20. s/p R TKA by Dr. Orozco on 02/20: - Pain management, IVF, PT/OT and DVT prophylaxis as per primary team - Bowel regimen ordered - Follow postop CBC and PRP - Encourage incentive spirometer Confusion - Narcan 02/21 - U/A - leuk esterase and wbcs - culture and Rocephin 1g daily - reduced tramadol dosing from 100 q4 to 50 q6, patient given 5 of oxycodone which is the dose she has been taking at home. - back to baseline mentation Orthostatic hypotension - orthostatic bp qS T2DM- HgbA1C 7.5% on 01/08/17: - Hold Metformin 500 mg BID - Continue Levemir 42 U HS - BSG ACHS and sliding insulin scale - blood sugars have been somewhat low, ss loosened Dyslipidemia: Continue Zocor 40 mg daily Hypothyroidism: Continue Synthroid 75 mcg daily Anxiety/depression: Continue Wellbutrin 150 BID, Celexa 40 mg daily, Trazodone 100 mg HS PRN GERD: Continue Protonix 40 mg daily DVT prophylaxis: As per surgical team- ASA 81 mg BID Dispo: As per primary team Thank you for this consultation. We will continue to follow. (Dionne Carrera ., GIANFRANCO) Attending Attestation: Pt seen/examined, chart reviewed, care plan d/w GIANFRANCO Carrera. I agree w/ the smith components of her documentation. Pt denies confusion, cp, sob, abd pain. +flatus. Main issue is right knee pain. VSS no fever gen - nad neck - no JVD heart - RRR lungs - CTA b/l abd - soft ext - right knee wrapped in large dressing; pulses 2+ b/l A/P: 1. encephalopathy - resolved. 2. ?UTI - urine culture negative; no symptoms. Thus, d/c antibiotics. 3. T2DM - controlled improved. Stop AM levemir. Continue PM levemir. Agree with loosening of correction/carb ratio of novolog. 4. mild acute blood loss anemia - follow; Fe supplementation. 5. CKD stage 3 - BMP stable. 6. right knee pain control - defer to orthopedics. Will continue to follow. Yuriy Sanchez MD (Yuriy Sanchez MD)
[2017-02-22] MEDS: CEFTRIAXONE SOD INJ 1 GM in DEXTROSE 5% ADD-VANTAGE 50ML 50 ML IV SCH (14:20)
[2017-02-22] MEDS: CeleBREX 200 MG CAP PO SCH (21:03)
[2017-02-22] MEDS: INSULIN DETEMIR FLEXPEN/FLEX TOUCH 100 UNITS/ML 3ML SC SCH (21:03)
[2017-02-22] MEDS: SENNA 8.6 MG TAB PO SCH (21:04)
[2017-02-22] MEDS: SIMVASTATIN 40 MG TAB PO SCH (21:04)
[2017-02-23] VITALS (8 sets, daily range): BP systolic 118–183; BP diastolic 56–100; PULSE 70–96; TEMP 36.7–36.9; O2SAT 92–95
[2017-02-23] MEDS: OXYCODONE HCL IR 5 MG TAB (IMMEDIATE RELEASE) PO PRN ×3 (02:15→17:46)
[2017-02-23] MEDS: LEVOTHYROXINE 75 MCG TAB PO SCH (06:05)
[2017-02-23] MEDS: ACETAMINOPHEN 500 MG TAB PO SCH ×3 (06:05→21:28)
[2017-02-23] MEDS ORDERED: ONDANSETRON INJ 2 MG/ML 2 ML VIAL IV PRN ×2 (08:30→08:45)
[2017-02-23] MEDS ORDERED: ONDANSETRON INJ 2 MG/ML 2 ML VIAL ONE (08:36)
--- NOTE | 2017-02-23 08:47 | Orthopedic Progress Note ---
Orthopedic Progress Note Date of Service Feb 23, 2017. Subjective Post OP Day: 3 Denies: chest pain, SOB, light headedness, calf pain Additional Notes: Pt sitting up in bed with breakfast tray in front of her. Most of the breakfast has been eaten. Pt stating that she feels nauseated currently. Pain controlled at rest. Objective calves soft nontender, N/V intact, dressing C/D/I (silverlon dressing), A&O x3, toes mobile Date Time Temp Pulse Resp B/P (MAP) Pulse Ox O2 Delivery O2 Flow Rate FiO2 02/23/17 07:09 36.8 85 16 176/84 (114) 92 Room Air 02/23/17 02:14 75 138/74 (95) 93 Room Air 83 132/72 (92) 84 128/70 (89) 02/22/17 23:35 Room Air 02/22/17 22:58 36.7 74 16 123/68 (86) 92 Room Air 02/22/17 15:50 37.1 87 16 163/76 (105) 99 Room Air 02/22/17 15:49 37.1 82 17 166/60 (95) 96 Room Air 02/22/17 15:32 37.1 75 17 153/76 (101) 94 Room Air 02/22/17 15:15 Room Air 02/22/17 13:36 80 120/70 (87) 02/22/17 10:50 67 162/83 (109) 70 170/83 (112) 80 166/78 (107) Laboratory Results 24 Hours: Test 02/23/17 08:27 Assessment & Plan Assessment: POD 3 s/p Right TKA nausea this AM Plan: Continue PT Zofran ordered for nausea. Plan for dc to home today if nausea resolves. Inhouse Planning Pain Management: Celebrex, Morphine, PO Tylenol, Oxy IR Discharge Planning Discharge Planning: home with home health Pain Management: Celebrex, PO Tylenol, Oxy IR DVT Prophylaxis: TEDs, SCDs, ASA Therapy: Physical Therapy
[2017-02-23 09:16] LABS: BASO % 0.2 %; BASO ABS # 0.02 K/uL (0-0.2); COMPLETE YES; EOS % 2.7 %; HEMATOCRIT 28.5 % (37-47); IG% 0.1 %; LYMPH % 19.5 %; LYMPH ABS # 1.78 K/uL (1.2-3.4); MEAN CELL VOLUME 94.1 fL (80-100); MEAN PLATELET VOLUME 9.8 fL (7.4-10.4); MONO % 9.1 %; NEUT % 68.4 %; PLATELET COUNT 162 K/uL (130-400); RED BLOOD COUNT 3.03 M/uL (4.2-5.4); WHITE BLOOD COUNT 9.15 K/uL (4.8-10.8)
[2017-02-23] MEDS ORDERED: ONDANSETRON INJ 2 MG/ML 2 ML VIAL IV STA (09:38)
[2017-02-23] MEDS: INSULIN ASPART 100 UNITS/ML 3 ML PEN SC SCH ×4 (10:01→21:33)
[2017-02-23] MEDS: CeleBREX 200 MG CAP PO SCH ×2 (10:03→21:27)
[2017-02-23] MEDS: DICYCLOMINE HCL 10 MG CAP PO SCH ×2 (10:03→21:27)
[2017-02-23] MEDS: CYANOCOBALAMIN 500 MCG TAB (VIT B-12) PO SCH (10:03)
[2017-02-23] MEDS: MULTIVITAMIN TAB PO SCH (10:03)
[2017-02-23] MEDS: DOCUSATE SODIUM 100 MG CAP PO SCH ×2 (10:04→21:27)
[2017-02-23] MEDS: ASPIRIN 81 MG ECTAB PO SCH ×2 (10:04→21:26)
[2017-02-23] MEDS: CITALOPRAM 40 MG TAB PO SCH (10:04)
[2017-02-23] MEDS: PANTOprazole SOD 40 MG TAB PO SCH (10:04)
[2017-02-23] MEDS: BuPROPion SR 150 MG TABCR PO SCH ×2 (10:04→21:27)
[2017-02-23] MEDS ORDERED: BISACODYL 10 MG SUPP PR ONE (11:00)
--- NOTE | 2017-02-23 11:44 | DIAGNOSTIC IMAGING REPORT ---
KUB HISTORY: nausea COMPARISON: None. FINDINGS: The bowel gas pattern is unremarkable. There are no dilated loops of small bowel to suggest an obstruction. No renal calculi. No ureteral calculi. No pneumoperitoneum or pneumatosis. Moderate to large amount well-formed stool seen throughout the colon. Dextroscoliosis of the lumbar spine. IMPRESSION: No renal or ureteral stones. Moderate to large amount of well-formed stool seen throughout the colon. Electronically signed by: Ricky Fraire M.D. 02/23/2017 11:43 AM Dictated Date/Time: 02/23/2017 11:42 AM
--- NOTE | 2017-02-23 14:12 | Hospitalist Progress Note ---
Hospitalist Progress Note Date of Service Feb 23, 2017. (Dionne Carrera CRNP) Subjective Pt evaluation today including: conversation w/ patient, physical exam, chart review, lab review, review of studies, review of inpatient medication list Voiding: no voiding problems Constitutional: No fever Respiratory: No cough, No sputum Cardiovascular: No chest pain Abdomen: No pain, No nausea Female : No dysuria All Other Systems: Reviewed and Negative (Dionne Carrera CRNP) Medications Medications (Trade) Dose Ordered Sig/Raghu Route Start Time Stop Time Status Last Admin Dose Admin Celecoxib (CeleBREX CAP) 200 mg BID PO 02/22/17 21:00 03/24/17 20:59 02/23/17 10:03 200 MG Ondansetron HCl (Zofran Inj) 4 mg STK-MED ONCE .ROUTE 02/23/17 08:36 02/23/17 08:37 DC 02/23/17 08:52 4 MG Bisacodyl (Dulcolax Supp) 10 mg ONE ONCE [place] 02/23/17 11:00 02/23/17 11:01 DC 02/23/17 13:42 10 MG (Dionne Carrera CRNP) Objective Vital Signs Date Time Temp Pulse Resp B/P (MAP) Pulse Ox O2 Delivery O2 Flow Rate FiO2 02/23/17 10:46 71 135/73 (93) 02/23/17 09:50 79 16 179/82 (114) 88 181/100 (127) 84 183/90 (121) 02/23/17 08:20 Room Air 02/23/17 07:09 36.8 85 16 176/84 (114) 92 Room Air 02/23/17 02:14 75 138/74 (95) 93 Room Air 83 132/72 (92) 84 128/70 (89) 02/22/17 23:35 Room Air 02/22/17 22:58 36.7 74 16 123/68 (86) 92 Room Air 02/22/17 15:50 37.1 87 16 163/76 (105) 99 Room Air 02/22/17 15:49 37.1 82 17 166/60 (95) 96 Room Air 02/22/17 15:32 37.1 75 17 153/76 (101) 94 Room Air 10/12/17 15:15 Room Air (Dionne Carrera CRNP) Physical Exam Notes: General: no distress Eyes: normal inspection, PERLL Respiratory: chest non tender, clear to auscultation, normal breath sounds, no respiratory distress, no accessory muscle use Cardiac: regular rate and rhythm, no rub or gallop, no murmur, no edema, no jvd GI/: active bowel sounds, no abd pain or tenderness, soft, mild distended Extremities: normal range of motion, normal strength, non tender Neuro/Psych: alert and oriented x 3, normal mood and affect Skin: normal color, dry (Dionne Carrera CRNP) Laboratory Results Last 24 Hours Test 02/22/17 17:13 02/22/17 20:34 02/23/17 08:19 02/23/17 09:06 Bedside Glucose 126 mg/dl 193 mg/dl 82 mg/dl White Blood Count 9.15 K/uL Red Blood Count 3.03 M/uL Hemoglobin 9.4 g/dL Hematocrit 28.5 % Mean Corpuscular Volume 94.1 fL Mean Corpuscular Hemoglobin 31.0 pg Mean Corpuscular Hemoglobin Concent 33.0 g/dl Platelet Count 162 K/uL Mean Platelet Volume 9.8 fL Neutrophils (%) (Auto) 68.4 % Lymphocytes (%) (Auto) 19.5 % Monocytes (%) (Auto) 9.1 % Eosinophils (%) (Auto) 2.7 % Basophils (%) (Auto) 0.2 % Neutrophils # (Auto) 6.26 K/uL Lymphocytes # (Auto) 1.78 K/uL Monocytes # (Auto) 0.83 K/uL Eosinophils # (Auto) 0.25 K/uL Basophils # (Auto) 0.02 K/uL RDW Standard Deviation 46.7 fL RDW Coefficient of Variation 13.6 % Immature Granulocyte % (Auto) 0.1 % Immature Granulocyte # (Auto) 0.01 K/uL Test 02/23/17 12:49 Bedside Glucose 119 mg/dl (Dionne Carrera CRNP) Assessment and Plan Patient is an 81 y/o female, with PMHx of T2DM, dyslipidemia, hypothyroidism, GERD, and DJD s/p R TKA by Dr. Orozco on 02/20. s/p R TKA by Dr. Orozco on 02/20: - Pain management, IVF, PT/OT and DVT prophylaxis as per primary team - Bowel regimen ordered - added dulcolax suppository as patient is experiencing some constipation - Follow postop CBC and PRP - Encourage incentive spirometer Confusion - Narcan 02/21 - U/A - leuk esterase and wbcs - culture negative, rocephin stopped - reduced tramadol dosing from 100 q4 to 50 q6, patient given 5 of oxycodone which is the dose she has been taking at home. - back to baseline mentation Orthostatic hypotension - orthostatic bp qS T2DM- HgbA1C 7.5% on 01/08/17: - Hold Metformin 500 mg BID - Continue Levemir 42 U HS - BSG ACHS and sliding insulin scale - blood sugars have been somewhat low, ss loosened Dyslipidemia: Continue Zocor 40 mg daily Hypothyroidism: Continue Synthroid 75 mcg daily Anxiety/depression: Continue Wellbutrin 150 BID, Celexa 40 mg daily, Trazodone 100 mg HS PRN GERD: Continue Protonix 40 mg daily DVT prophylaxis: As per surgical team- ASA 81 mg BID Dispo: As per primary team, patient is stable medically Thank you for this consultation. We will continue to follow. (Dionne Carrera ., GIANFRANCO) Attending Attestation: Pt seen/examined, chart reviewed, care plan d/w GIANFRANCO Carrera. I agree w/ the smith components of her documentation. Pt with constipation. Dulcolax suppos x 1 ordered by Romeo Carrera with "2 balls" of stool only per patient. She suffers from chronic constipation at home. Had nausea this am - now resolved. VSS no fever gen - nad neck - no JVD heart - RRR lungs - CTA b/l abd - soft ext - right knee wrapped in large dressing; pulses 2+ b/l A/P: 1. encephalopathy - resolved. 2. ?UTI - urine culture negative; no symptoms. Thus, d/c antibiotics. 3. T2DM - controlled with current regimen. No hypoglycemia. 4. mild acute blood loss anemia - continue Fe supplementation. H/H largely stable. 5. CKD stage 3 - BMP stable. 6. right knee pain control - defer to orthopedics. 7. constipation - mag citrate x 1. Continue miralax/senna. Ambulate. Limit narcotics if possible. KUB x-ray negative for ileus. Yuriy Sanchez MD (Yuriy Sanchez MD)
[2017-02-23] MEDS ORDERED: MAGNESIUM CITRATE 296 ML/BTL PO ONE (16:00)
[2017-02-23] MEDS: SIMVASTATIN 40 MG TAB PO SCH (21:27)
[2017-02-23] MEDS: SENNA 8.6 MG TAB PO SCH (21:27)
[2017-02-23] MEDS: INSULIN DETEMIR FLEXPEN/FLEX TOUCH 100 UNITS/ML 3ML SC SCH (21:34)
[2017-02-24] MEDS: LEVOTHYROXINE 75 MCG TAB PO SCH (05:45)
[2017-02-24] MEDS: OXYCODONE HCL IR 5 MG TAB (IMMEDIATE RELEASE) PO PRN ×2 (05:46→12:26)
[2017-02-24] MEDS: ACETAMINOPHEN 500 MG TAB PO SCH (05:46)
[2017-02-24 06:35] VITALS: BP 136/73
[2017-02-24 06:37] VITALS: BP 149/74
[2017-02-24 06:38] VITALS: BP 146/73
--- NOTE | 2017-02-24 06:59 | Orthopedic Progress Note ---
Orthopedic Progress Note Date of Service Feb 24, 2017. Subjective Post OP Day: 4 Reports: feeling well, pain controlled w PO medications, Denies: complaints, chest pain, SOB, light headedness, calf pain Additional Notes: nausea improved Objective calves soft nontender, N/V intact, capillary refill less than 2 sec., dressing C /D/I (silverlon intact), A&O x3, toes mobile Date Time Temp Pulse Resp B/P (MAP) Pulse Ox O2 Delivery O2 Flow Rate FiO2 02/23/17 23:25 Room Air 02/23/17 22:59 36.9 77 16 137/72 (93) 92 Room Air 02/23/17 20:28 82 174/78 (110) 96 138/56 (83) 02/23/17 16:00 Room Air 02/23/17 15:22 36.7 70 16 118/68 (85) 95 Room Air 02/23/17 13:02 77 02/23/17 10:46 71 135/73 (93) 02/23/17 09:50 79 16 179/82 (114) 88 181/100 (127) 84 183/90 (121) 02/23/17 08:20 Room Air 02/23/17 07:09 36.8 85 16 176/84 (114) 92 Room Air Laboratory Results 24 Hours: Test 02/23/17 09:06 White Blood Count 9.15 K/uL Red Blood Count 3.03 M/uL Hemoglobin 9.4 g/dL Hematocrit 28.5 % Mean Corpuscular Volume 94.1 fL Mean Corpuscular Hemoglobin 31.0 pg Mean Corpuscular Hemoglobin Concent 33.0 g/dl Platelet Count 162 K/uL Mean Platelet Volume 9.8 fL Neutrophils (%) (Auto) 68.4 % Lymphocytes (%) (Auto) 19.5 % Monocytes (%) (Auto) 9.1 % Eosinophils (%) (Auto) 2.7 % Basophils (%) (Auto) 0.2 % Neutrophils # (Auto) 6.26 K/uL Lymphocytes # (Auto) 1.78 K/uL Monocytes # (Auto) 0.83 K/uL Eosinophils # (Auto) 0.25 K/uL Basophils # (Auto) 0.02 K/uL Assessment & Plan Assessment: POD 4 s/p Right TKA nausea improved Plan: Continue PT Zofran ordered for nausea. Plan for dc to home today after PT deals with chronic constipation at home, uses Miralax, ordered this am Discharge Planning Discharge Planning: home with home health Pain Management: Celebrex, PO Tylenol, Oxy IR DVT Prophylaxis: TEDs, SCDs, ASA Therapy: Physical Therapy
[2017-02-24] MEDS ORDERED: BISACODYL 5 MG TABEC PO ONE (08:15)
[2017-02-24 08:44] VITALS: BP 138/85; PULSE 82; TEMP 36.8; O2SAT 91
[2017-02-24] MEDS: INSULIN ASPART 100 UNITS/ML 3 ML PEN SC SCH (08:59)
[2017-02-24] MEDS ORDERED: POLYETHYLENE (MIRALAX) 17 GM PACK PO SCH (09:00)
[2017-02-24] MEDS ORDERED: MRLP17 PO (09:24)
[2017-02-24] MEDS ORDERED: SNK PO (09:24)
[2017-02-24] MEDS ORDERED: FRRS300 PO (09:24)
[2017-02-24] MEDS: DOCUSATE SODIUM 100 MG CAP PO SCH (09:33)
[2017-02-24] MEDS: CITALOPRAM 40 MG TAB PO SCH (09:33)
--- NOTE | 2017-02-24 09:33 | Progress Note ---
Subjective Date of Service: Feb 24, 2017. Subjective Pt evaluation today including: conversation w/ patient, physical exam, chart review, lab review, review of studies (KUB x-ray), review of inpatient medication list Pain: right knee - but improved today PO Intake: ate good breakfast Voiding: no voiding problems feels good this AM no nausea had bowel movement finally no abd pain no dyspnea no chest pain "I'm ready to go" did well w/ PT today Review of Systems Constitutional: No fever Respiratory: No shortness of breath Cardiac: No chest pain Abdomen: No pain Objective Vital Signs Date Time Temp Pulse Resp B/P (MAP) Pulse Ox O2 Delivery O2 Flow Rate FiO2 02/24/17 08:44 36.8 82 16 138/85 (102) 91 Room Air 02/24/17 06:38 146/73 (97) 02/24/17 06:37 149/74 (99) 02/24/17 06:35 136/73 (94) 02/23/17 23:25 Room Air 02/23/17 22:59 36.9 77 16 137/72 (93) 92 Room Air 02/23/17 20:28 82 174/78 (110) 96 138/56 (83) 02/23/17 16:00 Room Air 02/23/17 15:22 36.7 70 16 118/68 (85) 95 Room Air 02/23/17 13:02 77 02/23/17 10:46 71 135/73 (93) 02/23/17 09:50 79 16 179/82 (114) 88 181/100 (127) 84 183/90 (121) Physical Exam General Appearance: no apparent distress ENT: pharynx normal Neck: no JVD Respiratory/Chest: lungs clear, no respiratory distress, no accessory muscle use Cardiovascular: regular rate, rhythm, no gallop, no murmur Abdomen: normal bowel sounds, non tender, soft, no organomegaly Extremities: + pedal edema (<1+ on right, none on left; pulses 2+ b/l ) Neurologic/Psychiatric: alert, oriented x 3 Skin: + pertinent finding (dressing on right knee intact) Laboratory Results Last 24 Hours Test 02/23/17 12:49 02/23/17 17:25 02/23/17 21:19 02/24/17 08:17 Bedside Glucose 119 mg/dl 116 mg/dl 204 mg/dl 99 mg/dl Assessment and Plan 81yo female with: 1. encephalopathy - resolved. 2. ?UTI - urine culture negative; no symptoms. No further abx. 3. T2DM - controlled with current regimen. No hypoglycemia. 4. mild acute blood loss anemia - continue Fe supplementation after d/c for 1- 2 months. 5. CKD stage 3 - BMPs have been stable. 6. right knee pain control - defer to orthopedics. Decently controlled this am. 7. constipation - improved. At discharge recommend combination of miralax 1-2x's/day PLUS senna 2 tabs daily. From medical standpoint can d/c home. F/u within 1 week with PCP.
[2017-02-24] MEDS: PANTOprazole SOD 40 MG TAB PO SCH (09:34)
[2017-02-24] MEDS: CYANOCOBALAMIN 500 MCG TAB (VIT B-12) PO SCH (09:34)
[2017-02-24] MEDS: BuPROPion SR 150 MG TABCR PO SCH (09:34)
[2017-02-24] MEDS: DICYCLOMINE HCL 10 MG CAP PO SCH (09:34)
[2017-02-24] MEDS: MULTIVITAMIN TAB PO SCH (09:34)
[2017-02-24] MEDS: ASPIRIN 81 MG ECTAB PO SCH (09:34)
[2017-02-24] MEDS: CeleBREX 200 MG CAP PO SCH (09:35)
[2017-02-24 09:55] VITALS: BP 138/85; PULSE 82; TEMP 36.8; O2SAT 91
--- NOTE | 2017-02-24 12:30 | Discharge Summary ---
Orthopedic Discharge Summary Admission Date/Reason Feb 20, 2017 at 08:00 Right Knee Osteoarthritis. Discharge Date/Disposition Feb 24, 2017 Home with services Diagnosis Principal Diagnosis: Right knee osteoarthritis Secondary Diagnoses/Problems: 1. encephalopathy - resolved. 2. ?UTI - urine culture negative; no symptoms. No further abx. 3. T2DM - controlled with current regimen. No hypoglycemia. 4. mild acute blood loss anemia - continue Fe supplementation after d/c for 1- 2 months. 5. CKD stage 3 - BMPs have been stable. 6. right knee pain control - defer to orthopedics. Decently controlled this am. 7. constipation - improved. At discharge recommend combination of miralax 1-2x's/day PLUS senna 2 tabs daily. Procedure(s) Performed Right Total Knee Arthroplasty utilizing [employer] 2 nonlocked total knee arthroplasty size 2 femur to tibia Poly-29 oval patella Consultations [facility]- medical management Medication Reconciliation New Medications: Ferrous Sulfate (Ferrous Sulfate) 325 Mg Tab 325 MG PO BID, #60 TABS 1 Refill Acetaminophen (Sb Non-Aspirin Extra Stre) 500 Mg Tab 1000 MG PO Q8, #126 TAB Aspirin (Aspirin EC Low Dose) 81 Mg Ectab 81 MG PO BID for 30 Days, #60 TAB Docusate Sodium (Docusate Sodium) 100 Mg Cap 100 MG PO BID for 10 Days, #20 CAP Oxycodone HCl (Oxycodone HCl) 5 Mg Tab 5-10 MG PO Q4H PRN for Pain, #60 TAB Polyethylene (Miralax) 17 Gm Pow 17 GM PO DAILY, #1 BTL 2 Refills Senna (Senna Lax) 8.6 Mg Tab 17.2 MG PO QAM, #60 TAB 2 Refills Continued Medications: Albuterol Hfa (Ventolin Hfa) 200 Puffs/15786 Mcg Aers 2 PUFFS INH Q6H PRN for PRN, #1 INHALER Bupropion (Wellbutrin Sr) 150 Mg Ertab 150 MG PO BID, TAB Cholecalciferol (Vitamin D3) 1,000 Unit Tab 1 TAB PO QAM for 90 Days, #90 TAB 3 Refills Citalopram Hydrobromide (Celexa) 40 Mg Tab 40 MG PO QAM, TAB Cyanocobalamin (Vitamin B12) 1,000 Mcg Tab 1000 MCG PO QAM Dicyclomine Hcl (Bentyl) 10 Mg Cap 10 MG PO BID, CAP Insulin Detemir (Levemir) 100 Units/Ml Inj 100 UNITS INJ QPM Levocetirizine Dihydrochloride (Levocetirizine Dihydrochl) 5 Mg Tab 1 TAB PO QAM for 90 Days, #90 TAB 3 Refills Levothyroxine Sodium (Levothyroxine Sodium) 75 Mcg Tab 1 TAB PO QAM for 90 Days, #90 TAB 3 Refills Metformin Hcl (Glucophage) 500 Mg Tab 500 MG PO BID, TAB Multivitamin (Multivitamin) Tab 1 TAB PO QAM, TAB Pantoprazole (Protonix) 40 Mg Tab 40 MG PO QAM, #30 TAB Simvastatin (Zocor) 40 Mg Tab 40 MG PO QPM, TAB Trazodone Hcl (Trazodone) 100 Mg Tab 100 MG PO HS PRN for RN, TAB [Allergy Tab] () 1 TAB PO PRN [Insulin Humalog] () 16 UNITS INJ BID Discontinued Medications: Oxycodone/Acetaminophen 7.5MG/325MG (Percocet 7.5MG/325MG) Tab 1 TAB PO Q4H PRN for Pain, TAB PRN PAIN Admission Physical Exam As per Admitting History & Physical. Hospital Course Patient was a same day admission after undergoing a successful right TKA. she tolerated the procedure well. Post-operatively, her activity was progressed, her hospital admission was lengthened due to post op nausea and constipation. Please refer to daily progress notes and PT notes for complete details. After exam on 02/24/17, these issues have resolved and patient felt to be stable for discharge home with PT. Patient will f/u in the office in 2 weeks for further evaluation including x-rays and incision check, sooner if having any issues or concerns. Below are pertinent labs/studies during their hospital stay: Last Resulted CBC 02/23/17 09:06 Red Blood Count 3.03, Mean Corpuscular Volume 94.1, Mean Corpuscular Hemoglobin 31.0, Mean Corpuscular Hemoglobin Concent 33.0, Mean Platelet Volume 9.8, Neutrophils (%) (Auto) 68.4, Lymphocytes (%) (Auto) 19.5, Monocytes (%) (Auto) 9.1, Eosinophils (%) (Auto) 2.7, Basophils (%) (Auto) 0.2, Neutrophils # (Auto) 6.26, Lymphocytes # (Auto) 1.78, Monocytes # (Auto) 0.83, Eosinophils # (Auto) 0.25, Basophils # (Auto) 0.02 Last Resulted BMP 02/22/17 06:03 Last Vital Signs Documentation Date Time Temp Pulse Resp B/P (MAP) Pulse Ox O2 Delivery O2 Flow Rate FiO2 02/24/17 09:55 36.8 82 16 91 Room Air 02/24/17 08:44 138/85 (102) 02/20/17 16:17 2.0 Discharge Instructions ACTIVITY RECOMMENDATIONS: SELF CARE INSTRUCTIONS AFTER TOTAL KNEE REPLACEMENT A. You may need to continue a physical therapy program after discharge from the hospital. There are several options available to you. Your doctor will assist you in selecting the best one for you. 1. An out-patient facility 2 to 3 times a week for therapy or home therapy. 2. Continue working on all exercises taught to you in the hospital. Your goals should be to increase bending of your knee to 90 degrees and beyond and to fully straighten your knee. B. You may progress at your own pace from walking with a walker or crutches to a cane; then to no assistive devices. C. Make walking a part of your daily routine. Be up as much as comfortable with rest periods throughout the day. Rest with leg elevation is very important. Use the ice wrap frequently for the first 3-4 weeks. D. There are no restrictions on activities. You may ride in a car, shop, participate in cartoon animator and all social activities. E. Wear the long elastic stockings (MALIA hose) 20 hours a day for 2 weeks after surgery. They can be removed several times a day for laundering and for a bath. F. You may shower, no tub baths until cleared by your doctor. SPECIAL CARE INSTRUCTIONS: VERY IMPORTANT TO READ AND REVIEW A. There are a few signs you need to watch for after you are home. Call [facility] if you notice any of the followin. Increased severe knee pain. Some pain is expected especially when you exercise. 2. Increased swelling in your leg or knee; pain or swelling of the calf muscle in either lower leg. 3. Any fluid drainage from the incision. 4. Shortness of breath or chest pain. B. Please call [facility] at if you have any concerns or questions about your operation or recovery. The doctor or his nurse will return your call promptly. C. You must take antibiotics before dental work, bladder, bowel or other surgery. Your doctor will provide you with a permanent care to carry describing this precaution. IMPORTANT: * REMEMBER TO TAKE ASPIRIN, 81 MG, TWICE DAILY FOR 4 WEEKS UNLESS OTHERWISE DIRECTED. THIS IS YOUR BLOOD THINNER. * HIGH RISK PATIENTS MAY BE PRESCRIBED A STRONGER BLOOD THINNER. THIS WILL BE PROVIDED AT DISCHARGE. * CALL IF INCREASED PAIN, REDNESS, DRAINAGE OR FEVER GREATER THAT 101. * WEAR MALIA HOSE 20 HOURS PER DAY FOR 2 WEEKS. * YOU MAY HAVE A LARGE BAND-AID LIKE DRESSING (SILVERON). THIS WILL REMAIN ON YOUR INCISION FOR 7 DAYS, THEN CAN BE REMOVED. IF INCISION IS LEAKING THROUGH DRESSING, CALL THE OFFICE . FOLLOW UP VISIT: If appointment is not already scheduled: Please call [facility] [place] to make a follow-up appointment for 2 weeks after your surgery at .
== END 2017-02-24 12:30 | disposition home health service (06) | DRG 469 ==
LOC: C.ACU 06:36 → C.3E 08:00 → ENRESERV 11:46
PROVIDERS: ADMIT Orthopaedic Surgery; ATTEND Orthopaedic Surgery
PROC: 0SRC0J9 Replacement of Right Knee Joint with Synthetic Substitute, Cemented, Open Approach (ICD-10-PCS; principal; 2017-02-22)
DX: M17.11 Unilateral primary osteoarthritis, right knee (principal); G92 Toxic encephalopathy; G93.41 Metabolic encephalopathy; N39.0 Urinary tract infection, site not specified; D62 Acute posthemorrhagic anemia; Z79.4 Long term (current) use of insulin; E11.9 Type 2 diabetes mellitus without complications; E78.5 Hyperlipidemia, unspecified; E03.9 Hypothyroidism, unspecified; K21.9 Gastro-esophageal reflux disease without esophagitis; F41.9 Anxiety disorder, unspecified; F32.9 Major depressive disorder, single episode, unspecified; R11.0 Nausea; T40.605A Adverse effect of unspecified narcotics, initial encounter; N18.3 Chronic kidney disease, stage 3 (moderate); I95.1 Orthostatic hypotension; K59.09 Other constipation